=== PATIENT | male | born 1970 | race African-American/Black ===

== ENCOUNTER 2017-11-08 23:03 | Observation (INO) | payer OTHER ==
[~2017-11-08] VITALS: Ht 175.3 cm; Wt 111.8 kg
[2017-11-09] MEDS ORDERED: METFORMIN HCL500 MG PO (01:08)
[2017-11-09] MEDS ORDERED: ZESTORETIC 20-1 EAC1 PO (01:09)
[2017-11-09] MEDS ORDERED: LIPITOR80 MG PO (01:10)
[2017-11-09] MEDS ORDERED: LOPRESSOR50 MG PO (01:10)
[2017-11-09] MEDS ORDERED: DECARA50000 UNIT PO (01:11)
[2017-11-09 01:26] LABS: HEMATOCRIT 37.4 % (38.0-50.0); HEMOGLOBIN 12.5 G/DL (12.5-16.6); MCHC 33.4 G/DL (30.0-36.0); MCV 83.7 FL (86-99); PLATELET COUNT 186 K/uL (156-360); RBC DIS.WIDTH-CV 15.1 % (11.8-14.6); RED BLOOD COUNT 4.47 M/uL (4.00-5.50); WHITE BLOOD COUNT 10.9 K/uL (4.1-10.2)
[2017-11-09 01:33] LABS: ALBUMIN 3.8 g/dL (3.2-4.8)
[2017-11-09 01:34] LABS: CHLORIDE 103 mEq/L (99-109); POTASSIUM 4.3 mEq/L (3.7-5.4); SODIUM 137 mEq/L (136-147)
[2017-11-09 01:36] LABS: GLUCOSE 99 mg/dL (70-99); TOTAL PROTEIN 6.7 g/dL (6.4-8.3)
[2017-11-09 01:38] LABS: TOTAL BILIRUBIN 0.3 mg/dL (0.0-1.0)
[2017-11-09 01:39] LABS: ALKALINE PHOSPHATASE 53 IU/L (3-129)
[2017-11-09 01:40] LABS: CREATININE 1.4 mg/dL (0.6-1.3); GFR ESTIMATE (CALCULATED) > 59 mL/min/ (58.99-99999)
[2017-11-09 01:41] LABS: AST (GOT) 21 IU/L (2-34); UREA NITROGEN (BUN) 21 mg/dL (9-23)
[2017-11-09 01:42] LABS: ALT (GPT) 33 IU/L (3-49)
[2017-11-09 04:55] VITALS: BP 115/62
[2017-11-09] MEDS ORDERED: BENADRYL25 MG PO (07:39)
[2017-11-09] MEDS ORDERED: HYDROCHLOROTHIA25 MG PO (07:39)
[2017-11-09] MEDS ORDERED: MEDROL DOSEPAK4 MG PO (07:39)
[2017-11-09] MEDS ORDERED: PEPCID20 MG PO (07:39)
[2017-11-09 09:40] VITALS: BP 112/65
[2017-11-09 10:27] LABS: CHLORIDE 102 MEQ/L (99-109); CREATININE 1.4 MG/DL (0.6-1.3); GFR ESTIMATE (CALCULATED) > 59 mL/min/ (58.99-99999); GLUCOSE 148 mg/dL (70-99); POTASSIUM 4.8 MEQ/L (3.7-5.4); SODIUM 138 MEQ/L (136-147); UREA NITROGEN (BUN) 23 mg/dL (9-23)
[2017-11-09 11:59] VITALS: BP 115/63
== END 2017-11-09 11:38 | disposition home or self-care (01) ==
LOC: EME 23:03 → EDOF 11-09 03:02 → ENRESERV 11-09 03:03 → 5WEST 11-09 04:51
PROVIDERS: Hospitalist; Physician Assistant
DX: T78.3XXA Angioneurotic edema, initial encounter (principal); R13.10 Dysphagia, unspecified; N28.9 Disorder of kidney and ureter, unspecified; I10 Essential (primary) hypertension; E78.5 Hyperlipidemia, unspecified; E11.9 Type 2 diabetes mellitus without complications; Z83.3 Family history of diabetes mellitus; Z79.84 Long term (current) use of oral hypoglycemic drugs
CPT/HCPCS: 70490; 80048 91; 80053; 82948; 85027; 87651 90; 94640; 99281; 99285; G0378; J1200; J2405; J2930; J7030; S0028

== ENCOUNTER 2018-04-17 13:52 | Emergency (ER) | payer OTHER ==
[~2018-04-17] VITALS: Ht 175.3 cm; Wt 108.1 kg
[~2018-04-17 13:52] MED LIST: BENADRYL25 MG PO; DECARA50000 UNIT PO; HYDROCHLOROTHIA25 MG PO; LIPITOR80 MG PO; LOPRESSOR50 MG PO; MEDROL DOSEPAK4 MG PO; METFORMIN HCL500 MG PO; PEPCID20 MG PO; ZESTORETIC 20-1 EAC1 PO
[2018-04-17 14:33] LABS: HEMATOCRIT 40.8 % (38.0-50.0); HEMOGLOBIN 13.6 G/DL (12.5-16.6); MCH 27.6 PG (29.0-34.0); MCHC 33.3 G/DL (30.0-36.0); MCV 82.8 FL (86-99); PLATELET COUNT 209 K/uL (156-360); RBC DIS.WIDTH-CV 15.4 % (11.8-14.6); RED BLOOD COUNT 4.93 M/uL (4.00-5.50); WHITE BLOOD COUNT 9.5 K/uL (4.1-10.2)
[2018-04-17 14:44] LABS: CHLORIDE 104 mEq/L (99-109); POTASSIUM 4.6 mEq/L (3.7-5.4); SODIUM 140 mEq/L (136-147)
[2018-04-17 14:46] LABS: GLUCOSE 124 mg/dL (70-99)
[2018-04-17 14:50] LABS: CREATININE 1.4 mg/dL (0.6-1.3); GFR ESTIMATE (CALCULATED) > 59 mL/min/ (58.99-99999)
[2018-04-17 14:51] LABS: UREA NITROGEN (BUN) 19 mg/dL (9-23)
[2018-04-17] MEDS ORDERED: BENADRYL50 MG PO (17:51)
[2018-04-17] MEDS ORDERED: PREDNISONE20 MG PO (17:51)
[2018-04-17] MEDS ORDERED: PEPCID20 MG PO (17:51)
[2018-04-17 18:16] VITALS: BP 117/67
== END 2018-04-17 18:23 | disposition left against medical advice (07) ==
LOC: EME 13:52
PROVIDERS: Emergency Medicine
DX: T78.3XXA Angioneurotic edema, initial encounter (principal); E11.9 Type 2 diabetes mellitus without complications; E78.5 Hyperlipidemia, unspecified; I10 Essential (primary) hypertension; Z79.84 Long term (current) use of oral hypoglycemic drugs; Z91.013 Allergy to seafood
CPT/HCPCS: 80048; 85027; 99281; 99284; J1200; J2930; S0028